=== PATIENT | male | born 1975 | race Caucasian/White ===

== ENCOUNTER 2016-10-17 08:46 | Emergency (ER) | payer OTHER ==
[~2016-10-17] VITALS: Ht 182.9 cm; Wt 178.0 kg
[~2016-10-17 08:46] MED LIST: ALBUTEROL SULF8.5 GM IH; ASPIR-LOW81 MG PO; BACTRIM,SEPT1 TABLET PO; BENTYL20 MG PO; CEFTIN500 MG PO; CLARITIN10 MG PO; CLEOCIN300 MG PO; COZAAR50 MG PO; DIOVAN160 MG PO; ENDOCET 5-3251 EACH PO; FENOFIBRATE160 M1 PO; FENOGLIDE120 MG PO; FLAGYL500 MG PO; FORTAMET1000 M1 PO; GLUCOPHAGE1000 MG PO; HUMALOG100 UNIT/2 SC; HUMALOG100 UNIT/2 SQ; HUMULIN R500 UNIT/1 SC; HUMULIN R500 UNITS/ SC; HYDROCHLOROTHIA25 MG PO; KEFLEX500 MG PO; LANTUS (UNITS)1 UNIT IM/SC; LANTUS 3 M100 UNITS1 SC; LEVAQUIN750 MG PO; LEVO-T100 MCG PO; LEVOTHYROXINE PO; LEVOTHYROXINE100 MCG PO; LO-DOSE ASPIRIN81 M2 PO; LOPRESSOR25 MG PO; LORTAB 5-325 M1 EACH PO; LOSARTAN POTASS50 MG PO; METFORMIN HCL1000 MG PO; MOTRIN800 MG PO; NAPROSYN500 MG PO; NORCO 7.5/321 TABLET PO; OMEPRAZOLE20 MG PO; PEN-VEE K,VEET500 MG PO; PERCOCET 5/31 TABLET PO; PHENERGAN-CODE120 ML PO; RANITIDINE HCL150 MG PO; SIMVASTATIN80 MG PO; TAMIFLU75 MG PO; TESSALON PERLE100 MG PO; TESSALON200 MG PO; TRAMADOL HCL50 MG PO; TRICOR145 MG PO; ULTRACET1 TABLET PO; ULTRAM50 MG PO; VANCOMYCIN HCL1 GM IV; VANCOMYCIN1 GM/150 M IV; VICODIN,LORT1 TABLET PO; ZANTAC150 MG PO; ZITHROMAX250 MG PO; ZOFRAN ODT4 MG PO; ZOFRAN4 MG PO
[2016-10-17 09:46] LABS: HEMATOCRIT 37.1 % (38.0-50.0); MCH 29.4 PG (29.0-34.0); MCHC 35.8 G/DL (30.0-36.0); MCV 82.1 FL (86-99); MEAN PLAT.VOLUME 12.4 uM^3 (9.0-12.4); PLATELET COUNT 148 K/uL (156-360); RBC DIS.WIDTH-CV 12.9 % (11.8-14.6); RBC DIS.WIDTH-SD 37.2 % (39-53); RED BLOOD COUNT 4.52 M/uL (4.00-5.50); WHITE BLOOD COUNT 6.8 K/uL (4.1-10.2)
[2016-10-17 09:57] LABS: CHLORIDE 102 mEq/L (99-109); POTASSIUM 4.5 mEq/L (3.7-5.4); SODIUM 137 mEq/L (136-147)
[2016-10-17 09:59] LABS: GLUCOSE 242 mg/dL (70-99)
[2016-10-17 10:01] LABS: ANION GAP 13 MEQ/L (2-14)
[2016-10-17 10:03] LABS: GFR ESTIMATE (CALCULATED) > 59 mL/min/
[2016-10-17 10:04] LABS: UREA NITROGEN (BUN) 16 mg/dL (9-23)
[2016-10-17 10:07] LABS: TROP-I INTERPRETATION NEGATIVE; TROPONIN-I < 0.01 ng/mL (0.0-0.30)
[2016-10-17 10:58] LABS: D-DIMER ELISA 0.21 mg/L FEU (< 0.57)
[2016-10-17] MEDS ORDERED: NEXIUM40 MG PO (14:34)
[2016-10-17 15:08] VITALS: BP 128/91
== END 2016-10-17 15:10 | disposition home or self-care (01) ==
LOC: EME 08:46
PROVIDERS: Emergency Medicine
DX: R07.9 Chest pain, unspecified (principal); E78.5 Hyperlipidemia, unspecified; I10 Essential (primary) hypertension; E03.9 Hypothyroidism, unspecified; E11.9 Type 2 diabetes mellitus without complications; Z79.4 Long term (current) use of insulin; Z88.6 Allergy status to analgesic agent
CPT/HCPCS: 71020; 80048; 84484; 85027; 85379; 93005; 99281; 99285; J7030

== ENCOUNTER 2016-11-27 08:04 | Emergency (ER) | payer OTHER ==
[~2016-11-27] VITALS: Ht 185.4 cm; Wt 177.6 kg
[~2016-11-27 08:04] MED LIST changes: +NEXIUM40 MG PO
[2016-11-27] MEDS ORDERED: CLINDAMYCIN HC300 MG PO (08:33)
[2016-11-27 08:47] VITALS: BP 147/97
== END 2016-11-27 08:47 | disposition home or self-care (01) ==
LOC: EME 08:04
DX: L02.412 Cutaneous abscess of left axilla (principal); Z86.14 Personal history of Methicillin resistant Staphylococcus aureus infection; E11.9 Type 2 diabetes mellitus without complications; I10 Essential (primary) hypertension; K21.9 Gastro-esophageal reflux disease without esophagitis
CPT/HCPCS: 99281; 99284

== ENCOUNTER 2016-12-20 02:03 | Observation (INO) | payer OTHER ==
[~2016-12-20] VITALS: Ht 182.9 cm; Wt 179.7 kg
[~2016-12-20 02:03] MED LIST changes: +CLINDAMYCIN HC300 MG PO
[2016-12-20 04:22] LABS: HEMATOCRIT 34.5 % (38.0-50.0); MCH 28.6 PG (29.0-34.0); MCHC 34.5 G/DL (30.0-36.0); MCV 82.9 FL (86-99); MEAN PLAT.VOLUME 11.9 uM^3 (9.0-12.4); PLATELET COUNT 119 K/uL (156-360); RBC DIS.WIDTH-CV 13.1 % (11.8-14.6); RBC DIS.WIDTH-SD 39.3 % (39-53); RED BLOOD COUNT 4.16 M/uL (4.00-5.50); WHITE BLOOD COUNT 4.1 K/uL (4.1-10.2)
[2016-12-20 04:39] LABS: CHLORIDE 105 mEq/L (99-109); POTASSIUM 3.9 mEq/L (3.7-5.4); SODIUM 138 mEq/L (136-147)
[2016-12-20 04:41] LABS: GLUCOSE 194 mg/dL (70-99)
[2016-12-20 04:42] LABS: ANION GAP 11 MEQ/L (2-14)
[2016-12-20 04:43] LABS: TROP-I INTERPRETATION NEGATIVE; TROPONIN-I < 0.01 ng/mL (0.0-0.30)
[2016-12-20 04:45] LABS: GFR ESTIMATE (CALCULATED) > 59 mL/min/
[2016-12-20 04:46] LABS: UREA NITROGEN (BUN) 17 mg/dL (9-23)
[2016-12-20 04:48] LABS: D-DIMER ELISA 0.17 mg/L FEU (< 0.57)
[2016-12-20 09:42] VITALS: BP 118/70
[2016-12-20 11:58] LABS: TROP-I INTERPRETATION NEGATIVE; TROPONIN-I < 0.01 ng/mL (0.0-0.30)
[2016-12-20 16:02] VITALS: BP 120/76
[2016-12-20 17:33] LABS: TROP-I INTERPRETATION NEGATIVE; TROPONIN-I < 0.01 ng/mL (0.0-0.30)
== END 2016-12-20 18:00 | disposition home or self-care (01) ==
LOC: EME 02:03 → EDOF 07:31 → 5WEST 09:16
PROVIDERS: Emergency Medicine; Internal Medicine
DX: R07.89 Other chest pain (principal); R00.0 Tachycardia, unspecified; E11.65 Type 2 diabetes mellitus with hyperglycemia; E66.01 Morbid (severe) obesity due to excess calories; Z68.43 Body mass index [BMI] 50.0-59.9, adult; I10 Essential (primary) hypertension; E78.5 Hyperlipidemia, unspecified; E03.9 Hypothyroidism, unspecified; K21.9 Gastro-esophageal reflux disease without esophagitis; Z79.4 Long term (current) use of insulin
CPT/HCPCS: 71020; 71275; 80048; 82948; 84484; 85027; 85379; 93005; 99281; 99285; G0378; J1650; J1815; J2270; J2405; J7030

== ENCOUNTER 2017-02-10 23:39 | Emergency (ER) | payer OTHER ==
[~2017-02-10] VITALS: Ht 182.9 cm; Wt 182.6 kg
[2017-02-11 00:13] LABS: MCHC 34.7 G/DL (30.0-36.0); MCV 83.5 FL (86-99); MEAN PLAT.VOLUME 12.8 uM^3 (9.0-12.4); PLATELET COUNT 122 K/uL (156-360); RBC DIS.WIDTH-SD 39.4 % (39-53); RED BLOOD COUNT 4.31 M/uL (4.00-5.50); WHITE BLOOD COUNT 4.1 K/uL (4.1-10.2)
[2017-02-11 00:26] LABS: CHLORIDE 100 mEq/L (99-109); POTASSIUM 4.4 mEq/L (3.7-5.4); SODIUM 134 mEq/L (136-147)
[2017-02-11 00:29] LABS: ANION GAP 10 MEQ/L (2-14)
[2017-02-11 00:31] LABS: GFR ESTIMATE (CALCULATED) 51 mL/min/
[2017-02-11 00:32] LABS: UREA NITROGEN (BUN) 20 mg/dL (9-23)
[2017-02-11 00:39] LABS: GLUCOSE 529 mg/dL (70-99)
[2017-02-11 03:10] LABS: POINT-OF-CARE METER ID UU14100415
[2017-02-11 04:23] LABS: POINT-OF-CARE METER ID UU14100415
[2017-02-11 04:50] LABS: CHLORIDE 107 mEq/L (99-109); POTASSIUM 4.4 mEq/L (3.7-5.4); SODIUM 138 mEq/L (136-147)
[2017-02-11 04:52] LABS: GLUCOSE 322 mg/dL (70-99)
[2017-02-11 04:53] LABS: ANION GAP 10 MEQ/L (2-14)
[2017-02-11 04:56] LABS: GFR ESTIMATE (CALCULATED) > 59 mL/min/; UREA NITROGEN (BUN) 20 mg/dL (9-23)
[2017-02-11 05:26] LABS: POINT-OF-CARE METER ID UU14100415
[2017-02-11] MEDS ORDERED: NORCO 5/3251 TABLET PO (05:55)
[2017-02-11 06:34] VITALS: BP 126/84
== END 2017-02-11 06:35 | disposition home or self-care (01) ==
LOC: EME 23:39
PROVIDERS: Emergency Medicine
DX: J06.9 Acute upper respiratory infection, unspecified (principal); E11.65 Type 2 diabetes mellitus with hyperglycemia; N28.9 Disorder of kidney and ureter, unspecified; I10 Essential (primary) hypertension; K21.9 Gastro-esophageal reflux disease without esophagitis; E78.5 Hyperlipidemia, unspecified; E03.9 Hypothyroidism, unspecified; Z79.4 Long term (current) use of insulin
CPT/HCPCS: 71020; 80048; 80048 91; 82948; 85027; 99281; 99285; J3010; J7030

== ENCOUNTER 2017-03-21 03:13 | Observation (INO) | payer OTHER ==
[~2017-03-21] VITALS: Ht 182.9 cm; Wt 179.1 kg
[~2017-03-21 03:13] MED LIST changes: +NORCO 5/3251 TABLET PO
[2017-03-21 04:34] LABS: HEMATOCRIT 33.6 % (38.0-50.0); MCH 28.7 PG (29.0-34.0); MCHC 34.8 G/DL (30.0-36.0); MCV 82.6 FL (86-99); MEAN PLAT.VOLUME 11.7 uM^3 (9.0-12.4); PLATELET COUNT 145 K/uL (156-360); RBC DIS.WIDTH-CV 12.8 % (11.8-14.6); RBC DIS.WIDTH-SD 38.3 % (39-53); RED BLOOD COUNT 4.07 M/uL (4.00-5.50); WHITE BLOOD COUNT 4.8 K/uL (4.1-10.2)
[2017-03-21 04:48] LABS: CHLORIDE 102 mEq/L (99-109); D-DIMER ELISA 0.22 mg/L FEU (< 0.57); POTASSIUM 4.2 mEq/L (3.7-5.4); SODIUM 137 mEq/L (136-147)
[2017-03-21 04:51] LABS: GLUCOSE 273 mg/dL (70-99)
[2017-03-21 04:52] LABS: ANION GAP 11 MEQ/L (2-14)
[2017-03-21 04:53] LABS: TOTAL BILIRUBIN 0.5 mg/dL (0.0-1.0)
[2017-03-21 04:54] LABS: ALKALINE PHOSPHATASE 64 IU/L (3-129); GFR ESTIMATE (CALCULATED) 55 mL/min/
[2017-03-21 04:55] LABS: UREA NITROGEN (BUN) 22 mg/dL (9-23)
[2017-03-21 04:58] LABS: LIPASE 67 U/L (1.0-51.0); TROP-I INTERPRETATION NEGATIVE; TROPONIN-I < 0.01 ng/mL (0.0-0.30)
[2017-03-21 07:37] VITALS: BP 118/67
[2017-03-21 09:49] LABS: METH RESISTANT S AUREUS PCR NEGATIVE (NEGATIVE)
[2017-03-21 10:09] LABS: PROBE CHECK PASS; SPECIMEN PROCESSING CONTROL PASS
[2017-03-21 10:40] LABS: TROP-I INTERPRETATION NEGATIVE; TROPONIN-I < 0.01 ng/mL (0.0-0.30)
[2017-03-21 12:02] VITALS: BP 127/71
[2017-03-21] MEDS ORDERED: ASPIR-LOW81 MG PO (14:37)
[2017-03-21] MEDS ORDERED: HUMULIN R500 UNITS/ SC (15:26)
[2017-03-21 15:34] VITALS: BP 139/84
[2017-03-21 17:17] LABS: TROP-I INTERPRETATION NEGATIVE; TROPONIN-I < 0.01 ng/mL (0.0-0.30)
== END 2017-03-21 18:06 | disposition home or self-care (01) ==
LOC: EME 03:13 → EDOF 06:01 → 5WEST 07:16
PROVIDERS: Emergency Medicine; Internal Medicine; Student in an Organized Health Care Education/Training Program
DX: R07.89 Other chest pain (principal); E11.65 Type 2 diabetes mellitus with hyperglycemia; E11.40 Type 2 diabetes mellitus with diabetic neuropathy, unspecified; Z79.4 Long term (current) use of insulin; I10 Essential (primary) hypertension; E78.5 Hyperlipidemia, unspecified; E03.9 Hypothyroidism, unspecified; M25.512 Pain in left shoulder; G89.29 Other chronic pain; K21.9 Gastro-esophageal reflux disease without esophagitis; E66.01 Morbid (severe) obesity due to excess calories; Z68.43 Body mass index [BMI] 50.0-59.9, adult; Z88.6 Allergy status to analgesic agent
CPT/HCPCS: 71020; 80053; 83690; 84484; 85027; 85379; 87641; 93005; G0378; J1650; J7040

== ENCOUNTER 2017-05-08 05:47 | Emergency (ER) | payer OTHER ==
[~2017-05-08] VITALS: Ht 185.4 cm; Wt 178.9 kg
[2017-05-08 06:23] LABS: HEMATOCRIT 33.4 % (38.0-50.0); MCH 29.4 PG (29.0-34.0); MCHC 34.7 G/DL (30.0-36.0); MCV 84.6 FL (86-99); MEAN PLAT.VOLUME 12.1 uM^3 (9.0-12.4); PLATELET COUNT 143 K/uL (156-360); RBC DIS.WIDTH-SD 39.8 % (39-53); RED BLOOD COUNT 3.95 M/uL (4.00-5.50); WHITE BLOOD COUNT 3.8 K/uL (4.1-10.2)
[2017-05-08 06:34] LABS: CHLORIDE 105 mEq/L (99-109); POTASSIUM 4.2 mEq/L (3.7-5.4); SODIUM 140 mEq/L (136-147)
[2017-05-08 06:36] LABS: GLUCOSE 136 mg/dL (70-99)
[2017-05-08 06:37] LABS: ANION GAP 11 MEQ/L (2-14)
[2017-05-08 06:40] LABS: GFR ESTIMATE (CALCULATED) 55 mL/min/; UREA NITROGEN (BUN) 23 mg/dL (9-23)
[2017-05-08 06:47] LABS: TROP-I INTERPRETATION NEGATIVE; TROPONIN-I < 0.01 ng/mL (0.0-0.30)
[2017-05-08 11:35] LABS: TROP-I INTERPRETATION NEGATIVE; TROPONIN-I < 0.01 ng/mL (0.0-0.30)
[2017-05-08 12:03] VITALS: BP 110/57
== END 2017-05-08 12:10 | disposition home or self-care (01) ==
LOC: EME 05:47
PROVIDERS: Emergency Medicine
DX: R07.89 Other chest pain (principal); I10 Essential (primary) hypertension; E11.9 Type 2 diabetes mellitus without complications; Z79.4 Long term (current) use of insulin; E78.5 Hyperlipidemia, unspecified; K21.9 Gastro-esophageal reflux disease without esophagitis; J45.909 Unspecified asthma, uncomplicated; E03.9 Hypothyroidism, unspecified; Z86.14 Personal history of Methicillin resistant Staphylococcus aureus infection
CPT/HCPCS: 71020; 80048; 84484; 85027; 93005

== ENCOUNTER 2017-06-25 03:24 | Observation (INO) | payer OTHER ==
[~2017-06-25] VITALS: Ht 182.9 cm; Wt 184.3 kg
[2017-06-25 03:49] LABS: HEMATOCRIT 34.1 % (38.0-50.0); MCH 29.3 PG (29.0-34.0); MCHC 34.3 G/DL (30.0-36.0); MCV 85.5 FL (86-99); PLATELET COUNT 120 K/uL (156-360); RBC DIS.WIDTH-CV 12.9 % (11.8-14.6); RED BLOOD COUNT 3.99 M/uL (4.00-5.50); WHITE BLOOD COUNT 3.9 K/uL (4.1-10.2)
[2017-06-25 04:13] LABS: TROP-I INTERPRETATION NEGATIVE; TROPONIN-I < 0.01 ng/mL (0.0-0.30)
[2017-06-25 04:16] LABS: D-DIMER ELISA < 150.00 ng/mLDDU (<230)
[2017-06-25 04:17] LABS: CHLORIDE 110 mEq/L (99-109); POTASSIUM 4.2 mEq/L (3.7-5.4); SODIUM 142 mEq/L (136-147)
[2017-06-25 04:18] LABS: GLUCOSE 229 mg/dL (70-99)
[2017-06-25 04:20] LABS: ANION GAP 11 MEQ/L (2-14)
[2017-06-25 04:22] LABS: GFR ESTIMATE (CALCULATED) > 59 mL/min/
[2017-06-25 04:23] LABS: UREA NITROGEN (BUN) 13 mg/dL (9-23)
[2017-06-25 07:38] LABS: Estimated Average Glucose 194 mg/dL (70-123); HEMOGLOBIN A1c (GLYCOHEMOGLOB) 8.4 % HGB (Below 5.7)
[2017-06-25 08:24] VITALS: BP 152/82
[2017-06-25 08:36] LABS: POINT-OF-CARE METER ID UU14162513
[2017-06-25] MEDS ORDERED: HUMULIN R500 UNITS/ SC (09:25)
[2017-06-25 11:36] LABS: POINT-OF-CARE METER ID UU14162513
[2017-06-25 12:31] VITALS: BP 150/69
[2017-06-25 13:14] LABS: TROP-I INTERPRETATION NEGATIVE; TROPONIN-I 0.02 ng/mL (0.0-0.30)
[2017-06-25 16:00] VITALS: BP 146/83
[2017-06-25 17:48] LABS: POINT-OF-CARE METER ID UU13113700
[2017-06-25 18:15] LABS: TROP-I INTERPRETATION NEGATIVE; TROPONIN-I 0.01 ng/mL (0.0-0.30)
== END 2017-06-25 18:35 | disposition home or self-care (01) ==
LOC: EME 03:24 → EDOF 04:57 → ENRESERV 04:59 → 5WEST 08:01
PROVIDERS: Hospitalist; Internal Medicine
DX: R07.89 Other chest pain (principal); I10 Essential (primary) hypertension; E11.40 Type 2 diabetes mellitus with diabetic neuropathy, unspecified; Z79.4 Long term (current) use of insulin; I27.2 Other secondary pulmonary hypertension; K21.9 Gastro-esophageal reflux disease without esophagitis; E78.5 Hyperlipidemia, unspecified; E03.9 Hypothyroidism, unspecified; E66.01 Morbid (severe) obesity due to excess calories; Z68.43 Body mass index [BMI] 50.0-59.9, adult; Z86.14 Personal history of Methicillin resistant Staphylococcus aureus infection; J45.909 Unspecified asthma, uncomplicated; Z79.82 Long term (current) use of aspirin; Z82.3 Family history of stroke
CPT/HCPCS: 71010; 80048; 82948; 83036; 84484; 85027; 85379; 93005; 93306; 99281; 99285; G0378; J1650; J1815; J2270; J7030; J7040

== ENCOUNTER 2017-07-09 17:47 | Emergency (ER) | payer OTHER ==
[~2017-07-09] VITALS: Ht 195.6 cm; Wt 182.5 kg
[2017-07-09] MEDS ORDERED: AMOXICILLIN875 MG PO (20:27)
[2017-07-09] MEDS ORDERED: MOTRIN600 MG PO (20:27)
[2017-07-09 21:17] VITALS: BP 150/90
== END 2017-07-09 21:18 | disposition home or self-care (01) ==
LOC: EME 17:47
DX: K04.7 Periapical abscess without sinus (principal); K02.9 Dental caries, unspecified; I10 Essential (primary) hypertension; E78.00 Pure hypercholesterolemia, unspecified; E11.9 Type 2 diabetes mellitus without complications; Z79.4 Long term (current) use of insulin
CPT/HCPCS: 99281; 99284

== ENCOUNTER 2017-09-12 17:03 | Emergency (ER) | payer OTHER ==
[~2017-09-12] VITALS: Ht 182.9 cm; Wt 180.5 kg
[~2017-09-12 17:03] MED LIST changes: +AMOXICILLIN875 MG PO; +MOTRIN600 MG PO
[2017-09-12 18:05] VITALS: BP 145/92
== END 2017-09-12 18:10 | disposition home or self-care (01) ==
LOC: EME 17:03
DX: B07.0 Plantar wart (principal); E11.9 Type 2 diabetes mellitus without complications; Z79.4 Long term (current) use of insulin; I10 Essential (primary) hypertension; E78.5 Hyperlipidemia, unspecified; E03.9 Hypothyroidism, unspecified; Z86.14 Personal history of Methicillin resistant Staphylococcus aureus infection
CPT/HCPCS: 73630; 99281; 99284

== ENCOUNTER 2017-12-30 21:14 | Observation (INO) | payer OTHER ==
[~2017-12-30] VITALS: Ht 182.9 cm; Wt 187.7 kg
[2017-12-30 22:53] LABS: HEMATOCRIT 38.3 % (38.0-50.0); HEMOGLOBIN 13.1 G/DL (12.5-16.6); MCH 29.2 PG (29.0-34.0); MCHC 34.2 G/DL (30.0-36.0); MCV 85.5 FL (86-99); PLATELET COUNT 130 K/uL (156-360); RBC DIS.WIDTH-CV 13.4 % (11.8-14.6); RBC DIS.WIDTH-SD 41.5 % (39-53); RED BLOOD COUNT 4.48 M/uL (4.00-5.50); WHITE BLOOD COUNT 5.1 K/uL (4.1-10.2)
[2017-12-30 23:04] LABS: ALBUMIN 4.1 g/dL (3.2-4.8)
[2017-12-30 23:05] LABS: CHLORIDE 105 mEq/L (99-109); POTASSIUM 4.4 mEq/L (3.7-5.4); SODIUM 138 mEq/L (136-147)
[2017-12-30 23:07] LABS: GLUCOSE 235 mg/dL (70-99); TOTAL PROTEIN 7.6 g/dL (6.4-8.3)
[2017-12-30 23:09] LABS: TOTAL BILIRUBIN 0.6 mg/dL (0.0-1.0)
[2017-12-30 23:10] LABS: ALKALINE PHOSPHATASE 78 IU/L (3-129)
[2017-12-30 23:11] LABS: CREATININE 1.4 mg/dL (0.6-1.3); GFR ESTIMATE (CALCULATED) 59 mL/min/ (58.99-99999)
[2017-12-30 23:12] LABS: AST (GOT) 128 IU/L (2-34); UREA NITROGEN (BUN) 31 mg/dL (9-23)
[2017-12-30 23:14] LABS: ALT (GPT) 130 IU/L (3-49); LIPASE 40 U/L (1.0-51.0)
[2017-12-31 00:02] LABS: COLOR YELLOW ((YELLOW))
[2017-12-31 00:03] LABS: APPEARANCE CLEAR ((CLEAR)); GLUCOSE (STRIP) NEGATIVE; LEUKOCYTES NEGATIVE; NITRITE NEGATIVE; PH, URINE 6 (5-8); PROTEIN (STRIP) 100
[2017-12-31 00:04] LABS: BILIRUBIN NEGATIVE; BLOOD TRACE; KETONES TRACE; UROBILINOGEN 0.2 MG/DL (0.2-1.0)
[2017-12-31 00:08] LABS: RED BLOOD CELLS 0-5 /HPF (0-5)
[2017-12-31 00:09] LABS: BACTERIA 1+ /HPF; EPITHELIAL CELLS NONE SEEN /HPF; MUCUS 1+ /LPF; UCUL ADDED? NO; WHITE BLOOD CELLS NONE SEEN /HPF (0-5)
[2017-12-31 02:30] LABS: C DIFF TOXIN NEGATIVE (NEGATIVE)
[2017-12-31] MEDS ORDERED: ZOFRAN ODT4 MG PO (02:38)
[2017-12-31 03:59] LABS: TROP-I INTERPRETATION NEGATIVE; TROPONIN-I 0.02 ng/mL (0.0-0.30)
[2017-12-31 04:00] LABS: CREATINE KINASE 79 IU/L (1-294); TOTAL CK 79 IU/L (1-294)
[2017-12-31 04:05] LABS: CK-MB 0.7 ng/mL (0.0-4.9); CKMB RELATIVE INDEX 0.9 (0.0-3.9)
[2017-12-31 06:09] LABS: HEMATOCRIT 35.2 % (38.0-50.0); HEMOGLOBIN 11.9 G/DL (12.5-16.6); MCHC 33.8 G/DL (30.0-36.0); MCV 85.9 FL (86-99); PLATELET COUNT 112 K/uL (156-360); RBC DIS.WIDTH-CV 13.5 % (11.8-14.6); RBC DIS.WIDTH-SD 42.2 % (39-53); WHITE BLOOD COUNT 3.7 K/uL (4.1-10.2)
[2017-12-31 06:23] LABS: ALBUMIN 3.8 g/dL (3.2-4.8); CHLORIDE 106 mEq/L (99-109); POTASSIUM 4.3 mEq/L (3.7-5.4); SODIUM 139 mEq/L (136-147)
[2017-12-31 06:25] LABS: GLUCOSE 181 mg/dL (70-99); TOTAL PROTEIN 6.5 g/dL (6.4-8.3)
[2017-12-31 06:27] LABS: TOTAL BILIRUBIN 0.6 mg/dL (0.0-1.0)
[2017-12-31 06:29] LABS: ALKALINE PHOSPHATASE 64 IU/L (3-129); CREATININE 1.4 mg/dL (0.6-1.3); GFR ESTIMATE (CALCULATED) 59 mL/min/ (58.99-99999)
[2017-12-31 06:30] LABS: UREA NITROGEN (BUN) 31 mg/dL (9-23)
[2017-12-31 06:31] LABS: AST (GOT) 98 IU/L (2-34)
[2017-12-31 06:32] LABS: ALT (GPT) 109 IU/L (3-49)
[2017-12-31 08:16] LABS: THYROTROPIN (TSH) 1.5 MIU/L (0.4-5.5)
[2017-12-31] MEDS ORDERED: FENOFIBRATE160 M1 PO (09:25)
[2017-12-31] MEDS ORDERED: ZANTAC150 MG PO (09:26)
[2017-12-31] MEDS ORDERED: HUMULIN R500 UNIT/1 SC ×2 (09:38)
[2017-12-31] MEDS ORDERED: HYDROCHLOROTHIA25 MG PO (09:39)
[2017-12-31] MEDS ORDERED: PROTONIX40 MG PO (09:39)
[2017-12-31 10:55] VITALS: BP 130/80
== END 2017-12-31 10:17 | disposition home or self-care (01) ==
LOC: EME 21:14 → EDOF 12-31 03:42 → ENRESERV 12-31 03:43 → EDOF 12-31 10:17
PROVIDERS: Emergency Medicine; Internal Medicine; Nurse Practitioner Adult Health
DX: R11.2 Nausea with vomiting, unspecified (principal); R19.7 Diarrhea, unspecified; N17.9 Acute kidney failure, unspecified; E86.0 Dehydration; R10.13 Epigastric pain; E11.9 Type 2 diabetes mellitus without complications; R79.89 Other specified abnormal findings of blood chemistry; I10 Essential (primary) hypertension; E78.5 Hyperlipidemia, unspecified; E03.9 Hypothyroidism, unspecified; E66.9 Obesity, unspecified; Z68.43 Body mass index [BMI] 50.0-59.9, adult; J45.909 Unspecified asthma, uncomplicated; K21.9 Gastro-esophageal reflux disease without esophagitis; Z86.14 Personal history of Methicillin resistant Staphylococcus aureus infection; Z88.6 Allergy status to analgesic agent; Z79.82 Long term (current) use of aspirin; Z79.4 Long term (current) use of insulin
CPT/HCPCS: 74177; 80053; 81003; 82550; 82553; 82948; 83605; 83690; 84443; 84484; 85027; 87493; 87506; 93005; 99281; 99285; G0378; J1815; J2405; J3010; J7040; J7120; S0028